=== PATIENT | male | born 1975 | race Caucasian/White ===

== ENCOUNTER 2017-03-25 13:22 | Inpatient (IN) | payer MEDICARE, MEDICAID ==
--- NOTE | 2017-03-25 13:39 | ED Physician Chart ---
Chief Complaint/HPI - Patient Information Date Seen:: 03/25/17 Time Seen:: 13:25 Chief Complaint:: Chest pain. History of Present Illness:: Brought in by private auto because of lower substernal chest pain since about 7 am today. Chest pain is characterized as constant, pressure like, with radiation to both sides of his neck. Chest pain is associated with occasional diaphoresis, dyspnea, and lightheadedness. No palpitation, ankle edema, orthopnea. ? PND. Pt admits recent illicit drug use with amphetamine about 3 days ago. No fever or cough. Pt has been informed about health risks associated with illicit drug use and has been advised to quit. Pt acknowledges understanding. Allergies:: Allergies Allergy/AdvReac Type Severity Reaction Status Date / Time No Known Allergies Allergy Verified 03/25/17 13:33 Vitals:: see Nurse Note. Historian:: Patient Family MD/PCP:: Dr. Castellanos LMP:: N/A Review:: Nurse's Note Reviewed Review of Systems - Review of Systems General/Constitutional: No fever, No chills, No weight loss, No weakness, No diaphoresis, No edema, No loss of appetite Skin: No skin lesions, No rash, No bruising Head: No headache, No light-headedness Eyes: No loss of vision, No pain, No diplopia Neck: No neck pain, No swelling, No thyromegaly, No stiffness, No mass noted Cardio Vascular: Chest pain, Palpitations, PND (?), No orthopnea, No edema Pulmonary: SOB, No cough, No wheezing GI: No nausea, No vomiting, No diarrhea, No pain G/U: No dysuria, No hematuria Musculoskeletal: No bone or joint pain, No back pain, No muscle pain Endocrine: No polyuria, No polydipsia Psychiatric: Prior psych history, No depression, No suicidal ideation, No homicidal ideation, No auditory hallucination, No visual hallucination Hematopoietic: No bruising, No lymphadenopathy Allergic/Immuno: No urticaria, No angioedema Neurological: No syncope, No focal symptoms, No weakness, No paresthesia, No headache, No dizziness, No confusion, No vertigo Family Medical History - Family Member Father Ethnicity: Non- Living Status: Hx Family Cancer: Yes Physical Exam - Physical Examination General/Constitutional: Awake, Well-developed, well-nourished, Alert, No distress, GCS 15, Non-toxic appearing, Ambulatory Other Gen/Cons comments:: Breathes comfortably, speaks clearly, interacts normally, and ambulates without difficulty. Head: Atraumatic Eyes: Lids, conjuctiva normal, PERRL, EOMI Skin: Nl inspection, No rash, No skin lesions, No ecchymosis, Well hydrated, No lymphadenopathy ENMT: External ears, nose nl, Lips, teeth, gums nl, Oropharynx nl Neck: Nontender, Full ROM w/o pain, No JVD, No nuchal rigidity, No bruit, No mass, No stridor Other Neck comments:: Carotid 2+/2+ Respiratory: Nl effort/Exclusion, Clear to Auscultation, No Wheeze/Rhonchi/Rales Cardio Vascular: RRR, No murmur, gallop, rubs, NL S1 S2 GI: No tenderness/rebounding/guarding, No organomegaly, No hernia, Normal BS's, Nondistended, No mass/bruits Other GI comments:: Obese but soft. Extremities: No edema Neuro/Psych: Alert/oriented (oriented x 3), Judgement/insight normal, Mood normal, Normal gait, No focal deficits Labs/Radiology/EKG Results - Lab Results Results: Laboratory Tests 03/25/17 03/25/17 03/25/17 13:40 13:40 13:40 WBC 7.0 RBC 4.79 Hgb 14.6 Hct 42.1 MCV 87.8 MCH 30.5 H MCHC Differential 34.7 RDW 13.0 Plt Count 220 MPV 8.3 Neutrophils % 78.0 Lymphocytes % 15.6 L Monocytes % 5.6 Eosinophils % 0.6 Basophils % 0.2 PT 10.8 INR 1.04 Sodium 139 Potassium 3.4 L Chloride 108 H Carbon Dioxide 26.4 Anion Gap 8.0 BUN 18 Creatinine 1.0 Est GFR ( Amer) > 60.0 Est GFR (Non-Af Amer) > 60.0 BUN/Creatinine Ratio 18.0 Glucose 107 H Calcium 9.5 Creatine Kinase 230 H CK-MB (CK-2) 11.6 H Troponin I B-Natriuretic Peptide Triglycerides 195 H Cholesterol 223 H LDL Cholesterol Direct 165 HDL Cholesterol 40 03/25/17 13:40 WBC RBC Hgb Hct MCV MCH MCHC Differential RDW Plt Count MPV Neutrophils % Lymphocytes % Monocytes % Eosinophils % Basophils % PT INR Sodium Potassium Chloride Carbon Dioxide Anion Gap BUN Creatinine Est GFR ( Amer) Est GFR (Non-Af Amer) BUN/Creatinine Ratio Glucose Calcium Creatine Kinase CK-MB (CK-2) Troponin I 0.01 B-Natriuretic Peptide 31.1 Triglycerides Cholesterol LDL Cholesterol Direct HDL Cholesterol Urine drug screen: pending. - Radiology Results Results: PCXR: Based on my interpretation, mild cardiomegaly; otherwise, NAD. Official report is pending. - EKG Interpretations EKG Time:: 13:27 Rate & Rhythm: NSR with VR 81 Comments:: No acute ischemic changes. site monitor: NSR with VR 86. No ectopy. Assessment - Assessment Critical Care Time: approx. 30 minutes ED Septic Shock - . Is Septic Shock (SBP<90, OR Lactate>4 mmol\L) present?: No Reassessment (Disposition) - Reassessment Reassessment:: 1425 Pt has been repeatedly evaluated. His chest pain resolved after 3 sublingual NTG's. Pt remains stable. Awaiting lab results and CXR. 1526 Pt remains stable and pain free. CXR just became available. EKG, CXR, and available lab findings have been reviewed with pt. Management plan has been discussed. Dr. Mckeon is to be contacted. 1616 Case was discussed with Dr. Mckeon with pertinent H & P, EKG, CXR, and available lab findings reviewed. Pt is to be admitted to Telemetry [facility] under his care. Reassessment Condition:: Improved - Diagnosis Diagnosis:: Chest pain, consider cardiac ischemia, stable and currently asymptomatic. Mild hypokalemia. Stable. - Patient Disposition Admitted to:: Telemetry Admitting Medical Physician:: Shay Mckeon Time:: 16:20 Condition at Disposition:: Stable, Improved ED Discharge Plan - Patient Disposition Admit/Discharge/Transfer: Acute Care w/in this hosp
[2017-03-25 13:50] LABS: % BASOPHILS 0.2 % (0.0-2.0); % EOSINOPHILS 0.6 % (0.0-5.0); % LYMPHOCYTES 15.6 % (20.0-50.0); % MONOCYTES 5.6 % (2.0-10.0); HEMATOCRIT 42.1 % (39.0-49.0); HEMOGLOBIN 14.6 gm/dL (13.2-17.3); MEAN CELL VOLUME 87.8 fl (80-99); MEAN CORPUSCULAR HEMOGLOBIN 30.5 pg (26.0-30.0); MEAN CORPUSCULAR HGB CONC 34.7 pg (28.0-36.0); MEAN PLATELET VOLUME 8.3 fl; NEUTROPHILE ABSOLUTE 5.5 Th/cmm (1.8-8.0); PLATELET COUNT 220 Th/cmm (150-400); RED BLOOD COUNT 4.79 Mil/cmm (4.30-5.70)
[2017-03-25 14:00] LABS: INR 1.04 (0.5-1.4); PROTHROMBIN TIME (TEST) 10.8 SECONDS (9.5-11.5)
[2017-03-25 14:03] LABS: BUN - UREA NITROGEN 18 mg/dL (7-25); CALCIUM SERUM 9.5 mg/dL (8.6-10.3); CARBON DIOXIDE 26.4 mEq/L (21.0-31.0); CHLORIDE 108 mEq/L (98-107); CHOLESTEROL 223 mg/dL (<200); GLUCOSE 107 mg/dL (70-105); POTASSIUM SERUM 3.4 mEq/L (3.5-5.1); SODIUM SERUM 139 mEq/L (136-145); TRIGLYCERIDES 195 mg/dL (<150)
[2017-03-25 14:05] LABS: TROP I 0.01 ng/mL (0.01-0.05)
[2017-03-25] MEDS ORDERED: NITROGLYCERIN OINT 2% 1 INCH PACKET TP STA (14:25)
[2017-03-25] MEDS ORDERED: Potassium Chloride 20 mEq ER Tab PO ONE ×2 (14:27→14:33)
[2017-03-25 14:29] LABS: CREATINE KINASE MB 11.6 ng/mL (0.6-6.3)
[2017-03-25 14:36] LABS: BNP 31.1 pg/mL (5.0-100.0)
[2017-03-25] MEDS ORDERED: NITROGLYCERIN OINT 2% 1 INCH PACKET TP ONE (16:31)
[2017-03-26 00:36] VITALS: BP 126/77
[2017-03-26] MEDS ORDERED: Morphine Sulfate 2 mg/mL 1mL Syr IVP PRN (04:50)
[2017-03-26] MEDS ORDERED: Acetaminophen 500 MG TAB PO PRN (04:53)
[2017-03-26 05:53] LABS: % EOSINOPHILS 1.2 % (0.0-5.0); HEMOGLOBIN 13.6 gm/dL (13.2-17.3); PLATELET COUNT 207 Th/cmm (150-400); RED BLOOD COUNT 4.47 Mil/cmm (4.30-5.70); WHITE BLOOD COUNT 6.7 Th/cmm (4.8-10.8)
[2017-03-26 05:59] LABS: % BASOPHILS 0.8 % (0.0-2.0); % LYMPHOCYTES 26.1 % (20.0-50.0); % MONOCYTES 6.4 % (2.0-10.0); % NEUTROPHILS 65.5 % (40.0-80.0); HEMATOCRIT 39.3 % (39.0-49.0); MEAN CELL VOLUME 87.9 fl (80-99); MEAN CORPUSCULAR HEMOGLOBIN 30.4 pg (26.0-30.0); MEAN CORPUSCULAR HGB CONC 34.6 pg (28.0-36.0); MEAN PLATELET VOLUME 8.2 fl; NEUTROPHILE ABSOLUTE 4.4 Th/cmm (1.8-8.0); RED CELL DISTRIBUTION WIDTH 13.2 % (11.5-20.0)
[2017-03-26 06:06] LABS: ALB/GLOB RATIO 1.6 (1.0-1.8); ALKALINE PHOSPHATASE 75 U/L (34-104); ANION GAP 6.5 (7.0-16.0); BILIRUBIN,TOTAL 0.9 mg/dL (0.3-1.0); BUN - UREA NITROGEN 17 mg/dL (7-25); CALCIUM SERUM 9.2 mg/dL (8.6-10.3); CARBON DIOXIDE 26.4 mEq/L (21.0-31.0); CHLORIDE 106 mEq/L (98-107); CHOLESTEROL 212 mg/dL (<200); GLUCOSE 107 mg/dL (70-105); POTASSIUM SERUM 3.9 mEq/L (3.5-5.1); SGOT 15 U/L (13-39); SGPT/ALT 27 U/L (7-52); SODIUM SERUM 135 mEq/L (136-145); TRIGLYCERIDES 206 mg/dL (<150)
--- NOTE | 2017-03-26 06:27 | Consultation ---
DATE OF CONSULTATION: 03/25/2017 HISTORY OF PRESENT ILLNESS: This 41-year-old male was seen and examined at the courtesy of Dr. Mckeon. The patient was admitted through Emergency Room and was brought to the Emergency Room complaining of chest pains in precordial area. The patient does have a history of hypertension, history of hyperlipidemia, history of bipolar disorder, schizophrenia. He was evaluated in the Emergency Room. LABORATORY DATA: His sodium level was 139, potassium was 3.4, chloride was 108, CO2 of 26.4, BUN 18, creatinine 1.0. Glucose was 107, calcium was 9.5, cholesterol was 223. Triglycerides 195, HDL 40, LDL was 65, CPK was 230, CPK MB 11.6. CPK index was 5. BNP 31.1. Troponin 0.01. INR 1.04. CBC: WBC was 7.0, hemoglobin 14.6, hematocrit 42.1, platelet count was 220. EKG showed sinus rhythm, normal axis. There are no acute changes. PAST MEDICAL HISTORY: Not significant. FAMILY HISTORY: Not really unremarkable. REVIEW OF SYSTEMS: Not really remarkable. PHYSICAL EXAMINATION: VITAL SIGNS: Heart rate was 70, blood pressure was 134/70. SKIN: Normal. HEAD: Normocephalic. EYES: Conjunctivae were pink. There is no icterus in the eyes. Pupils reacting to light. NECK: There was no increased jugular vein distention, no thyromegaly, no lymphadenopathy. Carotids equal both sides. CHEST: Bilaterally symmetrical and moved well with respirations. Respiratory movements equal both sides. Trachea is central. There is note to percussion. Breath sounds, few scattered rales. CARDIOVASCULAR SYSTEM: PMI not well localized and no positional thrill. No parasternal heave. S1 normal, S2 physiologic. There was no S3, no rub. ABDOMEN: Soft, no tenderness, no rigidity, no guarding and no organomegaly. Bowel sounds normal, no edema, no calf tenderness. Peripheral pulses okay. IMPRESSION: Chest pains, rule out myocardial infarction, hypertension, hyperlipidemia, hypokalemia, bipolar disorder, schizophrenia. The patient will continue cardiac monitoring, serial EKGs, serial troponin levels, get echocardiogram to evaluate left ventricular function and valvular structure, TSH level. In the meantime to continue beta-belinda, Coreg, aspirin, Lipitor 40 mg, and aspirin. Further recommendation will be made depending on the rest of the tests available and patient will be following now by Dr. Sadia Salazar. [facility]# [id number]
[2017-03-26] MEDS ORDERED: Atorvastatin Calcium 10 MG TAB PO SCH (09:00)
[2017-03-26] MEDS ORDERED: Aspirin 81mg Chewable Tab PO SCH (09:00)
[2017-03-26] MEDS ORDERED: Pantoprazole 40 mg EC Tab PO SCH (09:00)
--- NOTE | 2017-03-26 09:13 | Diagnostic Imaging Report ---
Portable chest x-ray HISTORY: Pain The heart is enlarged. No focal pulmonary processes. No hilar or mediastinal abnormalities. IMPRESSION: 1. No acute process 2. Cardiomegaly
--- NOTE | 2017-03-26 10:23 | History & Physical ---
ADMIT DATE: 03/25/2017 CHIEF COMPLAINT: Chest pain. HISTORY OF PRESENT ILLNESS: This is a 41-year-old gentleman with history of hypertension, hypercholesterolemia, meth use on and off for about 2 years, who presented to the ER yesterday afternoon after complaining of chest pain that started on the 10:00 in the morning. The chest pain was initially epigastric therefore thinking it was GERD, but then also became substernal mostly on the right side with radiation to both sides of his neck some mild shortness of breath and diaphoresis. He states that he has had chest pain in the past, but less intense and therefore he decided to come into the ER for further management and care. By the time he got to the ER, the chest pain had improved and it went away with three rounds of sublingual nitroglycerin. He did complain of mild shortness of breath upon activity, but denies any PND or orthopnea. He also denies any lower extremity edema. The patient thus admit to meth usage, the last couple of years he uses up to 3 times a day, but the last time he used was about 2 weeks ago. He also admits to some rate of noncompliance meaning that sometimes he takes his BP meds and his lipid lowering agent, he has not really taken for a while. The patient has been admitted to telemetry for further management and care. Currently, he denies any chest pain. PAST MEDICAL HISTORY: Hypertension and hyperlipidemia, and history of bipolar disease. PAST SURGICAL HISTORY: No major surgery is reported. FAMILY HISTORY: Negative for CAD, hypertension or diabetes. SOCIAL HISTORY: Denies any tobacco, ETOH, meth for about 2 years. Denies any cocaine or any other illicit drug usage. ALLERGIES: NKDA. OUTPATIENT MEDICATIONS: Tegretol 200 mg b.i.d., enalapril 40 mg every day, lamotrigine 200 every day, omeprazole 20 daily, Paxil 20 every day, Seroquel 400 at bedtime, simvastatin 20 mg every day. REVIEW OF SYSTEMS: CONSTITUTIONAL: No fever, chills, no recent weight loss. CARDIOVASCULAR: Please refer to the HPI. PULMONARY: No shortness of breath. No cough or phlegm production. GASTROINTESTINAL: Occasional GERD. GENITOURINARY: No dysuria or hematuria. NEUROLOGIC: No changes in vision. No syncopal episodes. PHYSICAL EXAMINATION: VITAL SIGNS: Temperature 98.0, pulse 70, respirations 18, BP 112/71, satting 98% on room air. GENERAL: Well nourished, well-developed, awake, alert and oriented x 3, not in acute distress. HEAD AND NECK: Normocephalic, atraumatic. Pupils reactive to light. Extraocular movements are intact. Oropharynx moist and clear. CARDIAC: Regular rate and rhythm without any murmurs. LUNGS: Clear to auscultation bilaterally. ABDOMEN: Soft, supple, nontender, nondistended, normoactive bowel sounds. LOWER EXTREMITIES: There is no pedal edema. NEUROLOGIC: Grossly intact and nonfocal. CHEST WALL EXAM: There is no tenderness to palpation on the chest wall area. LABORATORY DATA: Troponins negative x 3 sets. CBC essentially within normal limits. Chemistry shows potassium of 3.9, glucose 107, A1c 4.9. LFTs were essentially within normal limits. Triglycerides 206. Cholesterol 212, LDL 38. TSH within normal limits. EKG normal sinus rhythm at a rate of 66. IMPRESSION: 1. Chest pain, rule out acute coronary syndrome. Risk factors include hypertension, dyslipidemia and meth usage. 2. Dyslipidemia under control. 3. Hypertension. 4. Methamphetamine usage. 5. History of bipolar disease. PLAN: The patient has been admitted to the telemetry [facility] where he has been placed on aspirin and has been kept on Lipitor and nitroglycerin. He has been started on Coreg 6.25 b.i.d. and will be kept on Vasotec. He will undergo an echocardiogram and I have advised the patient on stopping meth, becoming more compliant with his meds and the probability of outpatient stress testing given his risk factors. [facility]# [id number] ADAL
--- NOTE | 2017-03-26 23:14 | Admit Criteria Form ---
Admit Criteria Forms - Admit Criteria Diagnosis: CHEST PAIN Clinical Indications for Admission to Inpatient Care (Place 'X' for any and all applicable criteria): Admission is indicated for chest pain and ANY ONE of the following(1)(2)(3)(4)(5 ): [ X]I. Angina with acute coronary syndrome (Also use Myocardial Infarction or Angina guideline) [ ]II. Hemodynamic instability [ ]III. Angina needing acute intervention as indicated by ALL of the following( 11)(12): [ ]a) Unstable angina is present as indicated by angina that is ANY ONE of the following: [ ]i) New onset [ ]ii) Nocturnal [ ]iii) Prolonged at rest [ ]iv) Progressive [ ]b) Angina warrants acute intervention as indicated by ANY ONE of the following: [ ]i) Recurrent angina (e.g, not responding as previously to treatment) [ ]ii) Angina at rest or with low-level activities despite initial medical therapy [ ]iii) New or presumably new ST-segment depression on ECG [ ]iv) Signs or symptoms of heart failure (eg, dyspnea, pulmonary edema) [ ]v) New or worsening mitral regurgitation [ ]vi) Hemodynamic instability [ ]vii) Dangerous arrhythmia (eg, sustained ventricular tachycardia) [ ]viii) History of percutaneous coronary intervention within 6 months [ ]ix) History of coronary artery bypass graft surgery [ ]x) ROSELYN risk score of 2 or greater[A] [ ]xi) History of Diabetes(14) [ ]xii) High-risk cardiac ischemia findings on noninvasive testing (e.g, echocardiogram, treadmill testing, nuclear scan) [ ]xiii) Chronic renal insufficiency (ie, estimated GFR less than 60 mL/min/1.732m) [ ]xiv) Left ventricular ejection fraction less than 40% [ ]IV. Evidence of WI (eg, cardiac biomarkers positive, ST-segment elevation on ECG) also use Myocardial Infarction Criteria Form. [ ]V. Pulmonary edema [ ]. Respiratory distress [ ]VII. Chest pain indicative of serious diagnosis other than coronary artery disease (eg, aortic dissection) [ ]VIII. Contraindications and/or Inappropriate clinical situations for Observational Care in patients with Chest Pain, when ANY ONE of the following is required: [ ]a) Patient with risk factor for pulmonary embolism, acute coronary syndrome and myocardial infarction (18) [ ]b) Patient with Pulmonary embolism require an average LOS of 4.3 days, therefore emergency department observation management is inappropriate 18,23 [ ]c) Painful condition/s in the elderly, have the highest rate of recidivism after emergency department observation management (10.8%) 20,21,22 [ ]d) Elevated cardiac biomarker requires intensive and exhaustive care (19) [ ]IX. General contraindications and/or Inappropriate clinical situations for Observational Care in patients with Chest Pain, when ANY ONE of the following is required: [ ]a) Prediction of prolongation of LOS based on ANY ONE of the following may be considered as a contraindication for observational care 2, 3, 4, 5, 6, 7, 8, 9, 10, 11 [ ]i) Age > 65 yrs. [ ]ii) Patient arriving by ambulance [ ]iii) Patient with high acuity [ ]iv) Patient requiring vital sign monitoring [ ]v) Patient on IV medication [ ]b) Systolic blood pressures 180mmHg 3,12 [ ]c) Patient with altered mental status including delirium and other alteration of consciousness, (3) [ ]d) Patient whose discharge disposition will be to a detention home or rehabilitation home should not be managed in Emergency Department Observation Unit. CMS rule requires 3 days hospital stay before such placement. 3,13 [ ]e) Patient with failure to thrive due to broad array of etiologies 3,16,17 [ ]f) Inability to ambulate 3,14 Extended stay beyond goal length of stay may be needed for (1)(28): [ ]a) Specific condition diagnosed after evaluation (eg, pulmonary embolism, aortic dissection) [ ]b) Unstable angina [ ]c) Continued suspicion of acute coronary syndrome with inability to complete needed cardiac evaluation (eg, patient clinically unable to undergo stress testing) [ ]d) Myocardial infarction (Contents from ANGINA and CHEST PAIN clinical indications for admission to inpatient care have been integrated in this form) The original [employer] content created by [employer] has been revised. The portions of the content which have been revised are identified through the use of italic text or in bold, and [facility] has neither reviewed nor approved the modified material. All other unmodified content is copyright [employer]. Please see references footnoted in the original [facility] edition 2016 Admit Criteria Met?: Yes
--- NOTE | 2017-03-27 10:25 | Discharge Summary ---
DATE OF DISCHARGE: 03/26/2017 ADMITTING DIAGNOSIS: Chest pain, rule out acute coronary syndrome. SECONDARY DIAGNOSES: Include history of hypertension, history of hyperlipidemia, history of methamphetamine abuse, history of bipolar disorder. DISCHARGE DIAGNOSES: Chest pain, workup negative for acute coronary syndrome. CONSULTANTS: Dr. Lanre Salazar. MAJOR PROCEDURES: There was a 2D echo done with official results pending. DISCHARGE MEDICATIONS: Aspirin 81 every day, atorvastatin 40 mg every day, Tegretol 200 mg b.i.d., enalapril 40 every day, Lamictal 200 every day, Protonix 40 every day, and Paxil 20 every day. BRIEF HOSPITAL COURSE: A 41-year-old male who has been complaining of chest pain on and off for about 2 weeks, who was eventually seen in the ER for the chest pain, which got worse the last couple of days. The chest pain was described as pressure like with radiation to the left and right neck areas, but more pronounced on the right. His initial lab work revealed no major abnormalities including troponins and CPKs, which were negative. His lipid panel or lipid profile was noted to be arranged with cholesterol of 223, HDL 165 , triglyceride level of 195. He did admit to some medical noncompliance and as mentioned above has been consuming methamphetamines for about 2 years. Last consumed about 2 weeks ago. He denies any similar episodes in the past. He was admitted to telemetry, underwent cardiac workup, was placed on aspirin, statin, and EARL inhibitor and beta belinda. His chest pain has subsided prior to being admitted. He remained asymptomatic while admitted. He was seen by Cardiology and underwent the above-mentioned procedure without any complications. CONDITION ON DISCHARGE: Stable. DISPOSITION: The patient was discharged home and was instructed to follow up with his primary care doctor in 1 week. JOB# [id number] ADAL
--- NOTE | 2017-03-27 14:00 | Cardiology ---
03/26/[address] Mckeon[address] M-MODE ECHOCARDIOGRAM: Mitral valve, anterior leaflet of mitral valve shows normal excursion, EF velocity. Posterior leaflets of mitral valve shows normal excursion. Left ventricular posterior wall shows increased thickness, normal excursion. Interventricular septum shows increased thickness, normal excursion, hypertrophy of the left ventricle, ejection fraction 71%. Left atrium enlarged 4.5 cm. Aortic root showed normal dimension, normal excursion of aortic leaflets. CONCLUSION: Hypertrophy of the left ventricle, left atrial enlargement, ejection fraction 71%. 2D ECHO: Long axis view showed normal sized left ventricle with hypertrophy of the left ventricle. Left atrium enlarged. Aortic root shows normal dimension, normal excursion of aortic leaflets. Short axis view of mitral valve normal. Short axis view of aortic valve normal. Apical four chamber view showed normal sized left ventricle with hypertrophy of the left ventricle. Left atrium enlarged. Right ventricular cavity, right atrium normal, no pericardial effusion. CONCLUSION: Hypertrophy of the left ventricle. Left atrial enlargement, ejection fraction 71%. Doppler study showed trace mitral regurgitation, trace tricuspid regurgitation, right ventricular systolic pressure 30 mmHg, prominent A wave consistent with poor compliance of left ventricle. CONCLUSION: Hypertrophy of the left ventricle. Left atrial enlargement, ejection fraction 71%. Trace mitral regurgitation and tricuspid regurgitation. [facility]# [id number]
== END 2017-03-26 17:00 | disposition home or self-care (01) | DRG 313 ==
LOC: ER 13:22 → TELE 16:20 → MSI 03-26 11:58
PROVIDERS: ADMIT Internal Medicine; ATTEND Internal Medicine
DX: R07.89 Other chest pain (principal); F20.9 Schizophrenia, unspecified; I10 Essential (primary) hypertension; F31.9 Bipolar disorder, unspecified; F15.10 Other stimulant abuse, uncomplicated; E78.5 Hyperlipidemia, unspecified; E78.00 Pure hypercholesterolemia, unspecified; E87.6 Hypokalemia; Z80.9 Family history of malignant neoplasm, unspecified; Z91.14 Patient's other noncompliance with medication regimen
CPT/HCPCS: 36415-UA; 71010-TC; 80048-TC; 80053-TC; 80061-TC; 82550-TC; 82553; 83036-90; 83880-TC; 84443-TC; 84484-TC; 85025-TC; 85610-TC; 93005; 93307-TC; Z7610

== ENCOUNTER 2018-07-21 18:11 | Emergency (ER) | payer MEDICARE, MEDICAID ==
[2018-07-21 18:44] LABS: URINE SOURCE CLEAN C
[2018-07-21 18:46] LABS: URINE BILIRUBIN SMALL (NEGATIVE); URINE BLOOD LARGE (NEGATIVE); URINE GLUCOSE (UA) NEGATIVE (NEGATIVE); URINE KETONE TRACE mg/dL (NEGATIVE); URINE LEUKOCYTE ESTERASE NEGATIVE (NEGATIVE); URINE MICROSCOPIC INDICATED? YES; URINE NITRATE NEGATIVE (NEGATIVE); URINE PROTEIN TRACE mg/dL (NEGATIVE); URINE UROBILINOGEN 0.2 E.U./dL (0.2 - 1.0)
[2018-07-21 18:49] LABS: URINE CLARITY CLEAR (CLEAR); URINE COLOR YELLOW
[2018-07-21 18:56] LABS: URINE EPITHELIAL CELLS FEW /lpf (FEW)
[2018-07-21 18:57] LABS: URINE BACTERIA FEW /hpf (NONE SEEN)
--- NOTE | 2018-07-21 19:02 | ED Physician Chart ---
ED Chief Complaint/HPI - Patient Information Date Seen:: 07/21/18 Time Seen:: 18:26 Chief Complaint:: hematuria & blood drops at end of urinating History of Present Illness:: hematuria & blood drops at end of urinating Allergies:: Allergies Allergy/AdvReac Type Severity Reaction Status Date / Time No Known Allergies Allergy Verified 03/25/17 13:33 Vitals:: Vital Signs - 8 hr 07/21/18 18:26 Temp 98.4 F HR 90 RR 17 BP 143/76 O2 Sat % 98 Historian:: Patient Review:: Nurse's Note Reviewed ED Review of Systems - Review of Systems General/Constitutional: No fever, No chills, No weight loss, No weakness, No diaphoresis, No edema, No loss of appetite Skin: No skin lesions, No rash, No bruising Head: No headache, No light-headedness Eyes: No loss of vision, No pain, No diplopia ENT: No earache, No nasal drainage, No sore throat, No tinnitus Neck: No neck pain, No swelling, No thyromegaly, No stiffness, No mass noted Cardio Vascular: No chest pain, No palpitations, No PND, No orthopnea, No edema Pulmonary: No SOB, No cough, No sputum, No wheezing GI: No nausea, No vomiting, No diarrhea, No pain, No melena, No hematochezia, No constipation, No hematemesis G/U: No dysuria, No frequency, Hematuria, No nacturia, Other (hematuria & blood drops at end of urinating) Musculoskeletal: No bone or joint pain, No back pain, No muscle pain Endocrine: No polyuria, No polydipsia Psychiatric: No prior psych history, No depression, No anxiety, No suicidal ideation Hematopoietic: No bruising, No lymphadenopathy Allergic/Immuno: No urticaria, No angioedema Neurological: No syncope, No focal symptoms, No weakness, No paresthesia, No headache, No seizure, No dizziness, No confusion, No vertigo ED Past Medical History - Past Medical History Obtainable: Yes Past Medical History: HTN, Other (hematuria & blood drops at end of urinating) Family Medical History - Family Member Father History Unknown: Yes Ethnicity: Non- Living Status: Hx Family Cancer: Yes Mother History Unknown: Yes Living Status: Still Living Hx Family Cancer: No Hx Family Coronary Artery Disease: No Hx Family Congestive Heart Failure: Yes Hx Family Hypertension: No Hx Family Stroke: No Hx Family Diabetes: No Hx Family Seizures: No Hx Family Dementia: No Hx Family AIDS: No Hx Family HIV: No Hx Family COPD: Yes Hx Family Hepatitis: No Hx Family Psychiatric Problems: No Hx Family Tuberculosis: No ED Physical Exam - Physical Examination General/Constitutional: Awake, Well-developed, well-nourished, Alert, No distress, GCS 15, Non-toxic appearing, Ambulatory Other Gen/Cons comments:: overweight Head: Atraumatic Eyes: Lids, conjuctiva normal, PERRL, EOMI Skin: Nl inspection, No rash, No skin lesions, No ecchymosis, Well hydrated, No lymphadenopathy ENMT: External ears, nose nl Neck: Nontender, No nuchal rigidity, No stridor Respiratory: Nl effort/Exclusion, Clear to Auscultation, No Wheeze/Rhonchi/Rales Cardio Vascular: RRR, No murmur, gallop, rubs, NL S1 S2 GI: No organomegaly, No hernia, Normal BS's, Nondistended, No McBurney tenderness Other GI comments:: slight tenderness in the LLQ. no peritoneal signs. : No CVA tenderness Other comments:: exam of penis and genitalia deferred by patient. he stated that everything was normal. Extremities: No tenderness or effusion, Full ROM, normal strength in all extremities, No edema, Normal digits & nails Neuro/Psych: Alert/oriented, Normal sensory exam, Normal motor strength, Judgement/insight normal, Mood normal, Normal gait, No focal deficits Misc: Normal back, No paraspinal tenderness ED Labs/Radiology/EKG Results - Lab Results Results: Laboratory Tests 07/21/18 18:30 Urine Source CLEAN C Urine Color YELLOW Urine Clarity CLEAR Urine pH 6.0 Ur Specific Dairy >= 1.030 Urine Protein TRACE Urine Glucose (UA) NEGATIVE Urine Ketones TRACE Urine Blood LARGE H Urine Nitrate NEGATIVE Urine Bilirubin SMALL H Urine Urobilinogen 0.2 Ur Leukocyte Esterase NEGATIVE Urine RBC 10-25 H Urine WBC 2-5 Ur Epithelial Cells FEW Urine Bacteria FEW ED Assessment - Assessment General Assessment: orthostatics do not change much at all. recorded by R.N. SIGN OUT GIVEN TO DR. GRANDE ED Septic Shock - . Is Septic Shock (SBP<90, OR Lactate>4 mmol\L) present?: No - <6hrs of presentation: Vital Signs: Vital Signs - 8 hr 07/21/ 18:26 Temp 98.4 F HR 90 RR 17 BP 143/76 O2 Sat % 98 ED Reassessment (Disposition) - Reassessment Reassessment Condition:: Unchanged - Diagnosis Diagnosis:: hematuria & blood drops at end of urinating - Aftercare/Follow up Instructions Notes:: SIGN OUT GIVEN TO DR. GRANDE
[2018-07-21 19:15] LABS: % BASOPHILS 0.2 % (0.0-2.0); % EOSINOPHILS 0.8 % (0.0-5.0); % LYMPHOCYTES 18.6 % (20.0-50.0); % MONOCYTES 3.4 % (2.0-10.0); EOSINOPHILE ABSOLUTE 0.1 Th/cmm (0.1-0.4); HEMATOCRIT 40.4 % (41.0-60); LYMPHOCYTE ABSOLUTE 1.3 Th/cmm (1.5-3.0); MEAN CELL VOLUME 87.9 fl (80-99); MEAN CORPUSCULAR HEMOGLOBIN 30.5 pg (26.0-30.0); MEAN CORPUSCULAR HGB CONC 34.7 pg (28.0-36.0); MEAN PLATELET VOLUME 7.7 fl; MONOCYTE ABSOLUTE 0.2 Th/cmm (0.3-1.0); NEUTROPHILE ABSOLUTE 5.3 Th/cmm (1.8-8.0); PLATELET COUNT 252 Th/cmm (150-400); RED BLOOD COUNT 4.59 Mil/cmm (4.30-5.70); RED CELL DISTRIBUTION WIDTH 12.2 % (11.5-20.0); WHITE BLOOD COUNT 6.9 Th/cmm (4.8-10.8)
[2018-07-21] MEDS ORDERED: Lactated Ringer 1,000 ML IV ONE (19:15)
[2018-07-21 19:26] LABS: PROTHROMBIN TIME (TEST) 10.4 SECONDS (9.5-11.5)
[2018-07-21 19:30] LABS: ALB/GLOB RATIO 1.9 (1.0-1.8); ALBUMIN 4.3 gm/dL (4.2-5.5); ALKALINE PHOSPHATASE 75 U/L (34-104); ANION GAP 12.5 (7.0-16.0); BILIRUBIN,TOTAL 0.3 mg/dL (0.3-1.0); BUN - UREA NITROGEN 16 mg/dL (7-25); CALCIUM SERUM 9.1 mg/dL (8.6-10.3); CHLORIDE 104 mEq/L (98-107); GFR AFRICAN-AMERICAN > 60.0 ml/min (>90); GFR NON AFRICAN-AMERICAN > 60.0 ml/min; GLUCOSE 103 mg/dL (70-105); POTASSIUM SERUM 3.5 mEq/L (3.5-5.1); SGOT 23 U/L (13-39); SGPT/ALT 34 U/L (7-52); SODIUM SERUM 141 mEq/L (136-145); TOTAL PROTEIN,SERUM 6.6 gm/dL (6.0-8.3)
--- NOTE | 2018-07-22 08:01 | Diagnostic Imaging Report ---
CT abdomen and pelvis without intravenous contrast Indication: hematuria Comparison: None, Technique: Axial images were obtained from the lung bases to the bilateral proximal femurs without IV contrast. Coronal reconstructions were made. total DLP: 814, CTDI14.6 FINDINGS: Hypoventilatory changes of the lung bases are seen with mild prominence of the left basal pleural fat. Assessment of the solid organs is limited due to lack of IV contrast. No evidence of focal hepatic lesions. No focal splenic or pancreatic lesions. No focal adrenal lesions. Minimal nonspecific bilateral perinephric inflammatory changes are noted. No evidence of hydronephrosis or renal stones. The prostate gland does not appear enlarged. Small bilateral fat-containing inguinal hernias are noted. The urinary bladder is underdistended limiting its evaluation. Moderate stool is seen throughout the colon. No evidence of bowel obstruction. No free fluid. No appendicitis. No free air. Degenerative changes of the spine and pelvis are noted. There is an old pars defects L5/S1 bilaterally with 1 mm anterolisthesis. IMPRESSION: No evidence of hydronephrosis or evidence of radiopaque renal stones. Minimal nonspecific bilateral perinephric inflammatory changes. Underdistended urinary bladder limits evaluation. Given history of hematuria, follow up assessment is recommended. Small bilateral fat-containing inguinal hernias. 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
== END 2018-07-21 22:15 | disposition home or self-care (01) ==
LOC: ER 18:11
DX: R31.9 Hematuria, unspecified (principal); R10.32 Left lower quadrant pain; I10 Essential (primary) hypertension
CPT/HCPCS: 36415-UA; 80053-TC; 81001-TC; 85025-TC; 85610-TC; Z7502